=== PATIENT | male | born 1950 | race Caucasian/White ===

== ENCOUNTER → 2016-09-30 | Outpatient (CLI) | payer MEDICARE ==
[2016-09-30 19:16] LABS: ALBUMIN 3.9 GM/DL (3.2-5.2); ALBUMIN/GLOBULIN RATIO 1.39 (1.00-1.93); ALKALINE PHOSPHATASE 90 U/L (45-117); ALT/SGPT 44 U/L (12-78); ANION GAP 7 MEQ/L (8-16); AST/SGOT 20 U/L (15-37); BILIRUBIN,TOTAL 0.5 MG/DL (0.2-1.0); BLOOD UREA NITROGEN 20 MG/DL (7-18); CALCIUM LEVEL 9.1 MG/DL (8.8-10.2); CARBON DIOXIDE LEVEL 28 MEQ/L (21-32); CHLORIDE LEVEL 103 MEQ/L (98-107); CHOLESTEROL LEVEL 236 MG/DL (<200); CREATININE FOR GFR 1.03 MG/DL (0.70-1.30); GLOMERULAR FILTRATION RATE > 60.0 (>49); GLUCOSE, FASTING 99 MG/DL (80-110); POTASSIUM SERUM 4.6 MEQ/L (3.5-5.1); SODIUM LEVEL 138 MEQ/L (136-145); TOTAL PROTEIN 6.7 GM/DL (6.4-8.2); TRIGLYCERIDES LEVEL 188 MG/DL (<150)
[2016-09-30 19:49] LABS: MEAN CORPUSCULAR HEMOGLOBIN 34.2 pg (27.0-33.0); MEAN CORPUSCULAR HGB CONC 34.7 g/dl (32.0-36.5); MEAN CORPUSCULAR VOLUME 98.5 fl (80.0-96.0); RED CELL DISTRIBUTION WIDTH 12.2 % (11.5-14.5); WHITE BLOOD COUNT 5.8 K/mm3 (4.0-10.0)
== END ==
LOC: M WUC 14:48
PROVIDERS: ATTEND Nurse Practitioner Family
DX: E78.00 Pure hypercholesterolemia, unspecified (principal); I10 Essential (primary) hypertension

== ENCOUNTER → 2019-03-30 | Outpatient (REF) | payer MEDICARE ==
[2019-03-30 11:59] LABS: BASO # 0.1 10^3/uL (0.0-0.2); BASO % 0.8 % (0.0-1.0); EOS # 0.1 10^3/uL (0.0-0.5); EOS % 1.1 % (0.0-3.0); HEMATOCRIT 45.7 % (42.0-52.0); HEMOGLOBIN 15.4 g/dl (13.5-17.5); LYMPH # 2.9 10^3/uL (1.5-5.0); LYMPH % 45.5 % (24.0-44.0); MEAN CORPUSCULAR HEMOGLOBIN 33.1 pg (27.0-33.0); MEAN CORPUSCULAR HGB CONC 33.7 g/dl (32.0-36.5); MEAN CORPUSCULAR VOLUME 98.3 fl (80.0-96.0); MONO # 0.6 10^3/uL (0.0-0.8); MONO % 9.9 % (0.0-5.0); NEUTROPHILS # 2.6 10^3/uL (1.5-8.5); NEUTROPHILS % 42.2 % (36.0-66.0); PLATELET COUNT, AUTOMATED 198 10^3/uL (150-450); RED BLOOD COUNT 4.65 10^6/uL (4.30-6.10); WHITE BLOOD COUNT 6.3 10^3/uL (4.0-10.0)
[2019-03-30 12:49] LABS: ALBUMIN 3.8 GM/DL (3.2-5.2); ALT/SGPT 46 U/L (12-78); BILIRUBIN,TOTAL 0.4 MG/DL (0.2-1.0); BLOOD UREA NITROGEN 14 MG/DL (7-18); CALCIUM LEVEL 8.7 MG/DL (8.8-10.2); CARBON DIOXIDE LEVEL 28 MEQ/L (21-32); CHLORIDE LEVEL 105 MEQ/L (98-107); CHOLESTEROL LEVEL 135 MG/DL (<200); CHOLESTEROL RISK RATIO 3.461 (<5); CREATININE FOR GFR 1.17 MG/DL (0.70-1.30); FREE T4 0.82 NG/DL (0.76-1.46); GLOMERULAR FILTRATION RATE > 60.0 (>49); GLUCOSE, FASTING 87 MG/DL (70-100); HDL CHOLESTEROL 39 MG/DL (>40); LDL CHOLESTEROL 73 MG/DL (<100); NON-HDL-C 96 MG/DL; POTASSIUM SERUM 4.3 MEQ/L (3.5-5.1); SODIUM LEVEL 141 MEQ/L (136-145); TOTAL PROTEIN 6.5 GM/DL (6.4-8.2); TRIGLYCERIDES LEVEL 117 MG/DL (<150)
== END ==
LOC: M LABWUC 10:52
PROVIDERS: ATTEND Physician Assistant Medical
DX: R53.83 Other fatigue (principal); I10 Essential (primary) hypertension; E78.2 Mixed hyperlipidemia

== ENCOUNTER → 2019-12-02 | Outpatient (CLI) | payer MEDICARE ==
[~2019-12-02] MED LIST: ASPI81CH2 PO; ATOR40TA75 PO; EZET10TA21 PO; GEMF600T5 PO; METO1TAB7 PO
== END ==
LOC: M LABSMTC 10:41
PROVIDERS: ATTEND Anesthesiology
DX: Z01.812 Encounter for preprocedural laboratory examination (principal); Z20.828 Contact with and (suspected) exposure to other viral communicable diseases
CPT/HCPCS: C9803; U0003

== ENCOUNTER 2019-12-07 11:20 | Day surgery (SDC) | payer MEDICARE ==
[~2019-12-07] VITALS: Ht 182.9 cm; Wt 113.4 kg
[~2019-12-07 11:20] MED LIST changes: +NS 1,000 ML IV ONE
[2019-12-07] MEDS ORDERED: propofoL 200 MG/20 ML VIAL As Ordered ONE ×2 (11:40→13:32)
[2019-12-07] MEDS ORDERED: LIDOCAINE 2% 100MG/5ML SDV (FOR ANES.) As Ordered ONE (11:41)
[2019-12-07] MEDS ORDERED: GLYCOPYRROLATE INJ 0.2 MG/ML 2 ML VIAL As Ordered ONE (13:21)
--- NOTE | 2019-12-07 14:04 | ROOR ---
Patient Name: Cornelius Swenson Procedure Date: 12/07/2019 1:07 PM Date of : 1950 Age: 69 Room: [facility] Gender: Male Note Status: Finalized Procedure: Colonoscopy Indications: Positive Cologuard test Providers: Nam Hernandez MD Referring MD: JW FELDMAN MD Requesting Provider: Medicines: Monitored Anesthesia Care Complications: No immediate complications. Procedure: Pre-Anesthesia Assessment: - Prior to the procedure, a History and Physical was performed, and patient medications and allergies were reviewed. The patient is competent. The risks and benefits of the procedure and the sedation options and risks were discussed with the patient. All questions were answered and informed consent was obtained. Patient identification and proposed procedure were verified by the physician, the nurse and the anesthesiologist in the procedure room. Mental Status Examination: alert and oriented. Prophylactic Antibiotics: The patient does not require prophylactic antibiotics. Prior Anticoagulants: The patient has taken no previous anticoagulant or antiplatelet agents. ASA Grade Assessment: III - A patient with severe systemic disease. After reviewing the risks and benefits, the patient was deemed in satisfactory condition to undergo the procedure. The anesthesia plan was to use monitored anesthesia care (MAC). Immediately prior to administration of medications, the patient was re-assessed for adequacy to receive sedatives. The heart rate, respiratory rate, oxygen saturations, blood pressure, adequacy of pulmonary ventilation, and response to care were monitored throughout the procedure. The physical status of the patient was re-assessed after the procedure. The Colonoscope was introduced through the anus and advanced to the cecum, identified by appendiceal orifice and ileocecal valve. The colonoscopy was performed without difficulty. The patient tolerated the procedure well. The quality of the bowel preparation was good. Findings: The perianal and digital rectal examinations were normal. A 7 mm polyp was found in the proximal ascending colon. The polyp was sessile. The polyp was removed with a hot snare. Resection and retrieval were complete. Estimated blood loss: none. Multiple large-mouthed diverticula were found in the sigmoid colon and distal descending colon. A 20 mm polyp was found at 50 cm proximal to the anus. The polyp was pedunculated. The polyp was removed with a hot snare. Resection and retrieval were complete. To prevent bleeding after the polypectomy, two hemostatic clips were successfully placed (MR conditional). There was no bleeding at the end of the procedure. Estimated blood loss: none. Impression: - One 7 mm polyp in the proximal ascending colon, removed with a hot snare. Resected and retrieved. - Diverticulosis in the sigmoid colon and in the distal descending colon. - One 20 mm polyp at 50 cm proximal to the anus, removed with a hot snare. Resected and retrieved. Clips (MR conditional) were placed. Recommendation: - Await pathology results. - If the pathology report reveals adenomatous tissue, then repeat the colonoscopy for surveillance in 3 years. Nam Hernandez MD Nam Hernandez MD 12/07/2019 2:03:40 PM Electronically signed by Nam Hernandez MD Number of Addenda: 0 Note Initiated On: 12/07/2019 1:07 PM Estimated Blood Loss: Estimated blood loss: none.
[2019-12-07 14:26] VITALS: BP 130/71
== END 2019-12-07 14:28 | disposition home or self-care (01) ==
LOC: M OPP 11:20
PROVIDERS: ATTEND Surgery
DX: C18.2 Malignant neoplasm of ascending colon (principal); I10 Essential (primary) hypertension; R19.5 Other fecal abnormalities; Z79.82 Long term (current) use of aspirin; Z79.899 Other long term (current) drug therapy; Z87.891 Personal history of nicotine dependence; Z95.5 Presence of coronary angioplasty implant and graft

== ENCOUNTER → 2021-01-20 | Outpatient (CLI) | payer MEDICARE ==
[~2021-01-20] MED LIST changes: +LOPI600T PO; +LOPR1TAB6 PO; -NS 1,000 ML IV ONE
== END ==
LOC: M LABSMTC 10:54
PROVIDERS: ATTEND Anesthesiology
DX: Z01.818 Encounter for other preprocedural examination (principal); Z11.52 Encounter for screening for COVID-19

== ENCOUNTER 2021-01-25 09:25 | Day surgery (SDC) | payer MEDICARE ==
[~2021-01-25] VITALS: Ht 180.3 cm; Wt 116.9 kg
[~2021-01-25 09:25] MED LIST changes: +LIDOCAINE 2% 100MG/5ML SDV (FOR ANES.) As Ordered ONE; +NS 1,000 ML IV ONE; +propofoL 200 MG/20 ML VIAL As Ordered ONE
--- OUTSIDE RECORDS SUMMARY | 2021-01-25 09:29 | CCD | Continuity of Care Document ---
Author Author Cornelius TINEO [place] Organization Unknown Address [address] [place] [address] [address] [place] [address] Phone [phone] Care Team Providers Care Strategic Manager Name Role Phone David Cota AUTM [phone] Nolberto Antony M.D. AUTM [phone] Problems Active Problems Provider Date Essential hypertension Kris Donnelly NP Onset: 11/11/2019 Social History Type Date Description Comments Sex Unknown ETOH Use Denies alcohol use Recreational Drug Use Denies Drug Use Tobacco Use Start: Unknown Pipe QUIT 2018 Allergies, Adverse Reactions, Alerts Description No Known Drug Allergies Medications Active Medications SIG Qnty Indications Ordering Provide r Date Atorvastatin Calcium 40mg Tablets once a day Unknown Gemfibrozil 600mg Tablets twi ce a day Unknown Ezetimibe 10mg Tablets once a day Unknown Metoprolol Tartrate 50mg Tablets 1 by mouth twice a day Unknown Aspirin 81mg Tablets DR 1 by mouth every day Unknown Immunizations Description No Information Available Vital Signs Date Vital Result Comment 12/11/2020 10:36am BP Systolic 144 mmHg BP Diastolic 76 mmHg Body Temperature 98.4 F Height 72 inches 6'0" Weight 258.50 lb BMI (Body Mass Index) 35.1 kg/m2 [place] Body Weight 178 lb Weight 117.256 kg BSA (Body Surface Area) 2.38 m2 12/29/2019 9:23am BP Systolic 160 mmHg BP Diastolic 80 mmHg Height 72 inches 6'0" Weight 258.00 lb BMI (Body Mass Index) 35.0 kg/m2 [place] Body Weight 178 lb Weight 117.029 kg BSA (Body Surface Area) 2.37 m2 Results Description No Information Available Procedures Description No Information Available Medical Devices Description No Information Available Encounters Description No Information Available Assessments Date Code Description Provider 12/11/2020 C18.7 Malignant neoplasm of sigmoid co margoth FADY [place] 12/11/2020 K63.5 Polyp of colon FADY [place] 12/11/2020 K57.30 Diverticulosis of la rge intestine without perforation or abscess without bleeding FADY [place] Plan of Treatment No Information Available Functional Status Description No Information Available Mental Status Description No Information Available Referrals Description No Information Available
--- OUTSIDE RECORDS SUMMARY | 2021-01-25 09:29 | CCD | Continuity of Care Document ---
Author Author Cornelius TINEO [place] Organization Unknown Address [address] [place] [address] [address] [place] [address] Phone [phone] Care Team Providers Care Slip Seat Coverer Name Role Phone David Cota AUTM [phone] Nolberto Antony M.D. AUTM [phone] Problems Active Problems Provider Date Essential hypertension [...] lb BMI (Body Mass Index) 35.1 kg/m2 [place] Body Weight 178 lb Weight 117.256 kg BSA (Body Surface Area) 2.38 m2 12/29/2019 9:23am BP Systolic 160 mmHg BP Diastolic 80 mmHg Height 72 inches 6'0" Weight 258.00 lb BMI (Body Mass Index) 35.0 kg/m2 [place] Body Weight 178 lb Weight 117.029 kg BSA (Body Surface Area) 2.37 m2 Results Description No Information Available Procedures Date Code Description Status 12/11/2020 01244 Office/Outpatient Established Lo w MDM 20-29 Min Completed Medical Devices Description No Information Available Encounters Type Date Location Provider Dx Diagnosis Office Visit 12/11/2020 10:30a [facility] FADY Castelan C18.7 Malignant neoplasm of sigmoid colon K63.5 Polyp of colon K57.30 Dvrtclos of lg int w/o perfo ration or abscess w/o bleeding Assessments Date Code Description Provider 12/11/2020 C18.7 Malignant neoplasm of sigmoid co margoth FADY [place] 12/11/2020 K63.5 Polyp of colon FADY [place] 12/11/2020 K57.30 Diverticulosis of la rge intestine without perforation or abscess without bleeding FADY [place] Plan of Treatment Future Appointment(s):* 02/06/2021 10:45 am - FADY [facility] at [facility] * 01/25/2021 12:15 pm - Nam Hernandez M.D. at [facility] 12/11/2020 - FADY [place]* C18.7 Malignant neoplasm of sigmoid colon * K63.5 Polyp of colon * K57.30 Diverticulosis of large intestine without perforation or abscess without bleeding Functional Status Description No Information Available Mental Status Description No Information Available Referrals Description No Information Available
--- OUTSIDE RECORDS SUMMARY | 2021-01-25 09:30 | CCD ---
Author Author [facility] Organization [facility] Address Unknown Phone Unavailable Care Team Providers Care Cleater Name Role Phone Robert Harden Unavailable Unavailable Juárez, L Wendy RPA Unavailable Unavailable Juárez, L Wendy RPA Unavailable Unavailable Juárez, L Wendy RPA Unavailable Unavailable Juárez, L Wendy RPA Unavailable Unavailable Juárez, L Wendy RPA Unavailable Unavailable Juárez, L Wendy RPA Unavailable Unavailable Juárez, L Wendy RPA Unavailable Unavailable Juárez, L Wendy RPA Unavailable Unavailable Juárez, L Wendy RPA Unavailable Unavailable Juárez, L Wendy RPA Unavailable Unavailable Juárez, L Wendy RPA Unavailable Unavailable Juárez, L Wendy RPA Unavailable Unavailable Juárez, L Wendy RPA Unavailable Unavailable Juárez, L Wendy RPA Unavailable Unavailable Juárez, L Wendy RPA Unavailable Unavailable Juárez, L Wendy RPA Unavailable Unavailable Juárez, L Wendy RPA Unavailable Unavailable Juárez, L Wendy RPA Unavailable Unavailable Juárez, L Wendy RPA Unavailable Unavailable Juárez, L Wendy RPA Unavailable Unavailable Juárez, L Wendy RPA Unavailable Unavailable Juárez, L Wendy RPA Unavailable Unavailable Juárez, L Wendy RPA Unavailable Unavailable Juárez, L Wendy RPA Unavailable Unavailable Juárez, L Wendy RPA Unavailable Unavailable Juárez, L Wendy RPA Unavailable Unavailable Juárez, L Wendy RPA Unavailable Unavailable Juárez, L Wendy RPA Unavailable Unavailable Juárez, L Wendy RPA Unavailable Unavailable Juárez, L Wendy RPA Unavailable Unavailable Juárez, L Wendy RPA Unavailable Unavailable Juárez, L Wendy RPA Unavailable Unavailable SIGRIDTARSKI, G JAVON PA Unavailable Unavailable TONTARSKI, G JAVON PA Unavailable Unavailable TONTARSTYSON, G JAVON PA Unavailable Unavailable TONTARSTYSON, G JAVON PA Unavailable Unavailable TONTARSTYSON, G JAVON PA Unavailable Unavailable TONTARSTYSON, G JAVON PA Unavailable Unavailable TONTARSKI, G JAVON PA Unavailable Unavailable TONTARSKI, G JAVON PA Unavailable Unavailable TONTARSKI, G JAVON PA Unavailable Unavailable TONTARSTYSON, G JAVON PA Unavailable Unavailable TONTARSKI, G JAVON PA Unavailable Unavailable TONTARSTYSON, G JAVON PA Unavailable Unavailable TONTARSKI, G JAVON PA Unavailable Unavailable TONTARSTYSON, G JAVON PA Unavailable Unavailable TONTARSTYSON, G JAVON PA Unavailable Unavailable TONTARSTYSON, G JAVON PA Unavailable Unavailable TONTARSTYSON, G JAVON PA Unavailable Unavailable TONTARSKI, G JAVON PA Unavailable Unavailable TONTARSTYSON, G JAVON PA Unavailable Unavailable TONTARSTYSON, G JAVON PA Unavailable Unavailable TONTARSTYSON, G JAVON PA Unavailable Unavailable TONTARSTYSON, G JAVON PA Unavailable Unavailable TONTARSTYSON, G JAVON PA Unavailable Unavailable TONTARSTYSON, G JAVON PA Unavailable Unavailable TONTARSTYSON, G JAVON PA Unavailable Unavailable TONTARSTYSON, G JAVON PA Unavailable Unavailable TONTARSTYSON, G JAVON PA Unavailable Unavailable TONTARSTYSON, G JAVON PA Unavailable Unavailable TONTARSTYSON, G JAVON PA Unavailable Unavailable TONTARSTYSON, G JAVON PA Unavailable Unavailable TONTARSTYSON, G JAVON PA Unavailable Unavailable TONTARSTYSON, G JAVON PA Unavailable Unavailable TONTARSTYSON, G JAVON PA Unavailable Unavailable TONTARSKI, G JAVON PA Unavailable Unavailable TONTARSTYSON, G JAVON PA Unavailable Unavailable TONTARSTYSON, G JAVON PA Unavailable Unavailable TONTARSTYSON, G JAVON PA Unavailable Unavailable TONTARSTYSON, G JAVON PA Unavailable Unavailable TONTARSKI, G JAVON PA Unavailable Unavailable TONTARSTYSON, G JAVON PA Unavailable Unavailable TONTARSTYSON, G JAVON PA Unavailable Unavailable TONTARSTYSON, G JAVON PA Unavailable Unavailable TONTARSKI, Robert ALEJANDRO PA Unavailable Unavailable TONTARSKI, Robert ALEJANDRO PA Unavailable Unavailable TONTARSKI, Robert ALEJANDRO PA Unavailable Unavailable TONTARSKI, Robert ALEJANDRO PA Unavailable Unavailable TONTARSKI, Robert ALEJANDRO PA Unavailable Unavailable Re-disclosure Warning The records that you are about to access may contain information from federally-assisted alcohol or drug abuse programs. If such information is present, then the following federally mandated warning applies: This information has been disclosed to you from records protected by federal confidentiality rules (42 CFR part 2). The federal rules prohibit you from making any further disclosure of this information unless further disclosure is expressly permitted by the written consent of the person to whom it pertains or as otherwise permitted by 42 CFR part 2. A general authorization for the release of medical or other information is NOT sufficient for this purpose. The Federal rules restrict any use of the information to criminally investigate or prosecute any alcohol or drug abuse patient.The records that you are about to access may contain highly sensitive health information, the redisclosure of which is protected by Article 27-F of the [facility] Public Health law. If you continue you may have access to information: Regarding HIV / AIDS; Provided by facilities licensed or operated by the [facility] Office of Mental Health; or Provided by the [facility] Office for People With Developmental Disabilities. If such information is present, then the following [facility] mandated warning applies: This information has been disclosed to you from confidential records which are protected by state law. State law prohibits you from making any further disclosure of this information without the specific written consent of the person to whom it pertains, or as otherwise permitted by law. Any unauthorized further disclosure in violation of state law may result in a fine or nursing home sentence or both. A general authorization for the release of medical or other information is NOT sufficient authorization for further disc losure. Encounters Encounter Providers Location Date Indications Data Source(s ) Outpatient Attender: JAVON Gallowayin robert 01/02/2021 02:00:00 PM EDT [facility] ([facility] Outpatient Attender: Wendy Faith/German/Gabriel/Callum guerrero 12/11/2020 10:30:00 AM EDT [facility] ([facility] Outpatient Attender: JAVON [facility] 10/02/2020 02:00:00 PM EDT [facility] ([facility]) Outpatient Attender: JAVON [facility] 04/03/2020 01:00:00 PM EST [facility] ([facility]) Outpatient Admitter: Yue Jennifererrer: Yue Harden 12/10/2019 12:00:00 AM EDT Malignant neoplasm of colon, unspecified [facility] Malignant neoplasm of colon, unspecified Immunizations Vaccine Date Status Description Data Source(s) COVID-19 VACCINE Moderna 05/29/2020 12:00:00 AM EDT completed [facility] Vaccine Series Complete: YESThis Data wa s Submitted to [facility] Via [employer]. COVID-19 VACCINE, MRNA-1273, LNP-S (MODERNA)/PF 05/29/2020 1 2:00:00 AM EDT completed [facility] COVID-19 VACCINE Moderna 04/28/2020 12:00:00 AM EST completed [facility] Vaccine Series Complete: NOThis Data was Submitted to [facility] Via [employer]. COVID-19 VACCINE, MRNA-1273, LNP-S (MODERNA)/PF 04/28/2020 1 2:00:00 AM EST completed [facility] Medications Medication Brand Name Start Date Product Form Dose Route Admi nistrative Instructions Pharmacy Instructions Status Indications Reaction Description Data Source(s) atorvastatin 40 MG Oral Tablet Atorvastatin Calcium 12/29/2020 1 2:00:00 AM EDT ORAL active [facility] ( [facility]) Multivitamin 12/29/2020 12:00:00 AM EDT ORAL activ e [facility] ([facility]) Gemfibrozil 600 MG Oral Tablet Gemfibrozil 12/29/2020 12:00:00 AM EDT ORAL active [facility] ([facility]) Fish Oil 12/29/2020 12:00:00 AM EDT ORAL active [facility] ([facility]) Aspirin 81 MG Delayed Release Oral Tablet Aspirin Ec Low Dos e 12/29/2020 12:00:00 AM EDT ORAL active [facility] ([facility]) Metoprolol Tartrate 50 MG Oral Tablet Metoprolol Tartrate 12:00:00 AM EDT ORAL active [facility] ([facility]) Suprep Bowel Prep Kit Suprep Bowel Prep Kit 11/30/2019 12:00:00 AM EDT completed [facility] ([facility], ) Insurance Providers Payer name Policy type / Coverage type Policy ID Covered alliance party ID Covered alliance party's relationship to love Policy Love Plan Information MEDICARE A [id number] Self [id number] AARP U [id number] Self [id number] [employer] OPTIONS [id number] SP [id number] A[employer] HE[employer] C[employer] OPTIONS [id number] SP [id number] MEDICARE [id number] SP [id number] MEDICARE [id number] SP [id number] [facility] [id number] SP [id number] Problems, Conditions, and Diagnoses Code Display Name Description Problem Type Effective Dates Data Source(s) C18.9 Malignant neoplasm of colon, unspecified Malignant neoplasm of colon, unspecified Diagnosis 12/10/2019 12:55:00 PM EDT [facility] [id number] 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 Problem 12/30/19 12:00:00 AM EDT - 12/29/2020 12:00:00 AM EDT [facility] ([facility]) Surgeries/Procedures Procedure Description Date Indications Data Source(s) OFFICE OUTPATIENT VISIT 15 MINUTES 01/02/2021 12:00:00 AM EDT [facility] ([facility]) OFFICE OUTPATIENT VISIT 15 MINUTES 12/11/2020 12:00:00 AM EDT [facility] ([facility], ) OFFICE OUTPATIENT VISIT 15 MINUTES 10/02/2020 12:00:00 AM EDT [facility] ([facility]) Colonoscopy W/ Poly 12/07/2019 12:00:00 AM EDT [facility] ([facility], ) Results ID Date Data Source [id number] 01/20/2021 10:25:00 AM EDT [facility] Name Value Range Interpretation Code Description Data Bibiana rce(s) Supporting Document(s) SARS-CoV-2 (COVID-19) RNA [Presence] in Respiratory specimen by [facility] with probe detection Not Detected [facility] This lab was ordered by [facility] and reported by [facility]. ID Date Data Source [id number] 12/13/2019 02:11:00 PM EDT [facility] Surgical Pathology ReportName: DAVID BARRERAMRN: [id number] Number: [id number] Date: 12/10/2019 00:00Received Date: 12/10/2019 13:00Physician(s): YUE HARDEN,YUE SHELBY,MDSpecimen(s) ReceivedA: Slides received for consultationClinical HistoryTwo cm polyp, per endoscopy report. No prior history. Please provide youropinion on the degree of dysplasia and whether invasion is present.DiagnosisCOLON, POLYP AT 50 CM, POLYPECTOMY ([id number], 12/07/19): ADENOCARCINOMAARISING IN A TUBULAR ADENOMA. (See Synoptic Report)Synoptic Report:Specimen Specimen Integrity: IntactTumor Tumor Site: at 50 cm. Histologic Type: Adenocarcinoma Histologic Grade: G1: Well differentiated Tumor Size: 0.49 x 0.28 cm Tumor Extension: Tumor invades submucosa Lymphovascular Invasion: Not identified Type of Polyp in Which Invasive Carcinoma Arose: Tubular adenoma Polyp Size: 1.3 cm Polyp Configuration: Pedunculated with stalk Stalk Length (Centimet ers): 0.39 cmMargins Deep Margin: Uninvolved by invasive carcinoma Distance of Invasive Carcinoma from Margin: 3.8 mm Mucosal Margin: Uninvolved by invasive carcinomaAdditional Findings Additional Pathologic Findings: None identified [employer] April 2018 Annual Release Electronically Signed By Dwaine Odonnell M.D., Attending Pathologist12/13/2019 14:11:40 Gross DescriptionReceived [facility] [place], [place], is 1 H and E stainedslide, 1 paraffin block, labeled [id number], with the correspondingpathology report. Microscopic DescriptionI agree with you that this tubular adenoma shows extensive high gradedysplasia. There is also a well differentiated adenocarcinoma invading thehead of the polyp. The presence of a desmoplastic stromal reaction isindicative of at least superficial submucosal invasion. There is noevidence of vascular invasion and the margin is free of tumor with aclearance of almost 4 millimeters. While it is difficult to measure theinvasive component because it merges imperceptibly with areas ofintramucosal carcinoma, it is at least 4.9 milimeters in greatestdimension. Based on these findings, there is a negligible biologicalpotential for metastasis. Thank you for letting me see this case inconsultation. This report may include one or more immunohistochemical stain results thatuse analyte specific reagents. All positive and negative controls havebeen reviewed by the attending pathologist and are satisfactory. The testswere developed and their performance characteristics determined by [facility] Pathology department. They have not been cleared or approved by the USFood and Drug Administration. The FDA has determined that such clearanceor approval is not necessary. Name Value Range Interpretation Code Description Data [facility] rce(s) Supporting Document(s) ID Date Data Source [id number] 12/07/2019 01:50:00 PM EDT [facility] ([facility], ) Name Value Range Interpretation Code Description Data [facility](s) Supporting Document(s) Surgical pathology study [facility], ) Addendum 1 Entered: 12/14/2019-0823 This addendum is being issued to report additional findings following consultation from [facility]. B. Colon, polyp at 50 cm, polypectomy: ADENOCARCINOMA, WELL-DIFFERENTIATED, ARISING IN A TUBULAR ADENOMA. Margins of resection uninvolved by invasive carcinoma. No definitive lymphovascular invasion identified. Please see the scanned documentation for a full consultation report ([id number]). 12/14/2019822 Addendum Signed____ YUE HARDEN MD 12/14/2019822 FINAL DIAGNOSIS A - Colon, ascending proximal polyp, biopsy: Fragment of hyperplastic colonic mucosa with reactive changes. B - Colon, polyp @ 50 cm., polypectomy: High grade dysplasia in a background of tubular adenoma. No definitive invasion identified. See comment. Comment: Malignant change is noted prominently within the mucosa, raising suspicion for an invasive adenocarcinoma. The case is being sent to [facility] for a consultation, and an addendum will follow. 12/08/2019 - 1658 CLINICAL DIAGNOSIS Screening 12/08/2019758 GROSS DIAGNOSIS A - Received in formalin labeled "proximal ascending colon polyp" consists of three fragments of tai tissue measuring 0.3 x 0.3 x 0.2 cm. All in one. B - Received in formalin labeled "colon polyp at 50 cm" consists of one polypoid fragment of mucosal pink-tai tissue measuring 1.3 x 1.0 x 0.8 cm. The margin is inked black, and the specimen is bisected and entirely submitted in one block. -SV 12/08/2019 - 1658 Signed YUE HARDEN MD 12/08/20191658 ID Date Data Source [id number] 12/02/2019 11:00:00 AM EDT [facility] Name Value Range Interpretation Code Description Data Bibiana rce(s) Supporting Document(s) SARS coronavirus 2 RNA [facility] This lab was ordered by [facility] and reported by [facility]. Procedure Social History No Information Vital Signs ID Date Data Source UNK Name Value Range Interpretation Code Description Data Source(s) Body temperature 98.4 [degF] 98.4 [degF] [facility] ([facility]) Diastolic blood pressure 76 mm[Hg] 76 mm[Hg] [facility] ([facility]) Systolic blood pressure 144 mm[Hg] 144 mm[Hg] M TOMAS ([facility]) Body weight 258.50 [lb_av] 258.50 [lb_av] ISABELLA Mcmillan ([facility]) Body height 72 [in_i] 72 [in_i] [facility] ([facility]) 6'0" Body weight 117.256 kg 117.256 kg [facility] ([facility]) Guin body weight 178 [lb_av] 178 [lb_av] MED[facility] T ([facility]) Body mass index (BMI) [Ratio] 35.1 kg/m2 35.1 k g/m2 [facility] ([facility]) Body surface area Derived from formula 2.38 m2 2.38 m2 [facility] ([facility]) Body height 72 [in_i] 72 [in_i] [facility] ([facility]) 6'0" Body weight 262.00 [lb_av] 262.00 [lb_av] [facility] ([facility]) Body mass index (BMI) [Ratio] 35.5 kg/m2 35.5 k g/m2 [facility] ([facility]) Systolic blood pressure 179 mm[Hg] 179 mm[Hg] [facility] Diastolic blood pressure 64 mm[Hg] 64 mm[Hg] [facility] ([facility]) Heart rate 53 /min 53 /min [facility] ([facility]) Respiratory rate 16 /min 16 /min [facility] ( [facility]) Body height 72 [in_i] 72 [in_i] [facility] ([facility]) 6'0" Body weight 258.00 [lb_av] 258.00 [lb_av] MED[facility] T ([facility]) Body mass index (BMI) [Ratio] 35.0 kg/m2 35.0 k g/m2 [facility] ([facility]) Guin body weight 178 [lb_av] 178 [lb_av] [facility] T ([facility]) Body weight 117.029 kg 117.029 kg [facility] Diastolic blood pressure 80 mm[Hg] 80 mm[Hg] [facility] ([facility]) Systolic blood pressure 160 mm[Hg] 160 mm[Hg] M EDENT ([facility]) Body height 72 [in_i] 72 [in_i] [facility] ([facility]) 6'0" Body weight 258.00 [lb_av] 258.00 [lb_av] [facility] Body mass index (BMI) [Ratio] 35.0 kg/m2 35.0 k g/m2 [facility] ([facility]) Guin body weight 178 [lb_av] 178 [lb_av] [facility] Body weight 117.029 kg 117.029 kg [facility] ([facility]) Body surface area Derived from formula 2.37 m2 2.37 m2 [facility] ([facility])
[2021-01-25] MEDS ORDERED: METOPROLOL TART 50 MG TAB PO ONE (10:00)
[2021-01-25 10:11] VITALS: BP 199/99
--- NOTE | 2021-01-25 11:44 | ROOR ---
Patient Name: Cornelius Swenson Procedure Date: 01/25/2021 11:13 AM Date of : 1950 Age: 70 Room: [facility] Gender: Male Note Status: Finalized Procedure: Colonoscopy Indications: High risk colon cancer surveillance: Personal history of colon cancer, Last colonoscopy: November 2019. An adenomatous polyp was resected from 50cm and contained a small focus of cancer. Providers: Nam Hernandez MD Referring MD: JW FELDMAN MD Requesting Provider: Medicines: Monitored Anesthesia Care Complications: No immediate complications. Procedure: Pre-Anesthesia Assessment: - Prior to the procedure, a History and Physical was performed, and patient medications and allergies were reviewed. The patient is competent. The risks and benefits of the procedure and the sedation options and risks were discussed with the patient. All questions were answered and informed consent was obtained. Patient identification and proposed procedure were verified by the physician, the nurse and the door captain in the procedure room. Mental Status Examination: alert and oriented. Airway Examination: normal oropharyngeal airway and neck mobility. Prophylactic Antibiotics: The patient does not require prophylactic antibiotics. Prior Anticoagulants: The patient has taken no previous anticoagulant or antiplatelet agents. ASA Grade Assessment: III - A patient with severe systemic disease. After reviewing the risks and benefits, the patient was deemed in satisfactory condition to undergo the procedure. The anesthesia plan was to use monitored anesthesia care (MAC). Immediately prior to administration of medications, the patient was re-assessed for adequacy to receive sedatives. The heart rate, respiratory rate, oxygen saturations, blood pressure, adequacy of pulmonary ventilation, and response to care were monitored throughout the procedure. The physical status of the patient was re-assessed after the procedure. The Colonoscope was introduced through the anus and advanced to the cecum, identified by appendiceal orifice and ileocecal valve. The colonoscopy was performed without difficulty. The patient tolerated the procedure well. The quality of the bowel preparation was good. Findings: The perianal and digital rectal examinations were normal. A 2 mm polyp was found in the cecum. The polyp was sessile. The polyp was removed with a jumbo cold forceps. Resection and retrieval were complete. Estimated blood loss was minimal. Multiple medium-mouthed diverticula were found in the descending colon, transverse colon and ascending colon. Many small and large-mouthed diverticula were found in the sigmoid colon. Impression: - One 2 mm polyp in the cecum, removed with a jumbo cold forceps. Resected and retrieved. - Diverticulosis in the descending colon, in the transverse colon and in the ascending colon. - Diverticulosis in the sigmoid colon. Recommendation: - Discharge patient to home. - Resume previous diet. - Continue present medications. - Await pathology results. Procedure Code(s): --- Professional --- 53825, Colonoscopy, flexible; with biopsy, single or multiple Diagnosis Code(s): --- Professional --- Z85.038, Personal history of other malignant neoplasm of large intestine K63.5, Polyp of colon K57.30, Diverticulosis of large intestine without perforation or abscess without bleeding CPT copyright 2019 [employer]. All rights reserved. The codes documented in this report are preliminary and upon rn resource nurse review may be revised to meet current compliance requirements. Nam Hernandez MD Nam Hernandez MD 01/25/2021 11:44:25 AM Electronically signed by Nam Hernandez MD Number of Addenda: 0 Note Initiated On: 01/25/2021 11:13 AM Estimated Blood Loss: Estimated blood loss was minimal.
[2021-01-25 12:07] VITALS: BP 122/64
== END 2021-01-25 12:15 | disposition home or self-care (01) ==
LOC: M OPP 09:25
PROVIDERS: ATTEND Surgery
DX: D12.6 Benign neoplasm of colon, unspecified (principal); K57.30 Diverticulosis of large intestine without perforation or abscess without bleeding; Z85.038 Personal history of other malignant neoplasm of large intestine

== ENCOUNTER → 2022-01-15 | Outpatient (CLI) | payer MEDICARE ==
[~2022-01-15] MED LIST changes: -LIDOCAINE 2% 100MG/5ML SDV (FOR ANES.) As Ordered ONE; -NS 1,000 ML IV ONE; -propofoL 200 MG/20 ML VIAL As Ordered ONE
== END ==
LOC: M LAB 15:13 → M EKG 15:13
PROVIDERS: ATTEND Physician Assistant
DX: Z01.818 Encounter for other preprocedural examination (principal)